=== PATIENT | male | born 1935 | race Caucasian/White ===

== ENCOUNTER → 2016-09-21 | Outpatient (CLI) | payer MEDICARE | END | disposition home or self-care (01) | LOC: CVU 11:40 | PROVIDERS: ATTEND Internal Medicine Cardiovascular Disease | DX: I08.3 Combined rheumatic disorders of mitral, aortic and tricuspid valves (principal); I25.10 Atherosclerotic heart disease of native coronary artery without angina pectoris; I10 Essential (primary) hypertension; I25.2 Old myocardial infarction; Z95.0 Presence of cardiac pacemaker; Z95.5 Presence of coronary angioplasty implant and graft | CPT/HCPCS: 93306 ==

== ENCOUNTER → 2017-08-22 | Outpatient (CLI) | payer MEDICARE | END | disposition home or self-care (01) | LOC: CVU 10:04 | PROVIDERS: ATTEND Internal Medicine Cardiovascular Disease | DX: I08.3 Combined rheumatic disorders of mitral, aortic and tricuspid valves (principal); I25.10 Atherosclerotic heart disease of native coronary artery without angina pectoris; I10 Essential (primary) hypertension; I25.2 Old myocardial infarction; Z87.891 Personal history of nicotine dependence | CPT/HCPCS: 0399T; 93306 ==

== ENCOUNTER → 2018-05-01 | Outpatient (CLI) | payer MEDICARE | END | disposition home or self-care (01) | LOC: RAD 15:37 | PROVIDERS: ATTEND Internal Medicine Cardiovascular Disease | DX: R06.00 Dyspnea, unspecified (principal); M47.814 Spondylosis without myelopathy or radiculopathy, thoracic region; Z95.0 Presence of cardiac pacemaker | CPT/HCPCS: 71046 ==

== ENCOUNTER → 2018-06-14 | Outpatient (CLI) | payer MEDICARE ==
[~2018-06-14] MED LIST: OMNIPAQUE 350 MG/ML, 100ML BOTTLE ONE
== END | disposition home or self-care (01) ==
LOC: CFH 11:53
PROVIDERS: ATTEND Internal Medicine Cardiovascular Disease
DX: R91.8 Other nonspecific abnormal finding of lung field (principal); K80.20 Calculus of gallbladder without cholecystitis without obstruction; K76.89 Other specified diseases of liver; Z95.0 Presence of cardiac pacemaker
CPT/HCPCS: 71260; 82565; Q9967

== ENCOUNTER 2018-07-30 09:58 | Emergency (ER) | payer MEDICARE ==
[~2018-07-30] VITALS: Ht 198.1 cm; Wt 118.0 kg
--- NOTE | 2018-07-30 10:08 | NUR ---
PT BIB [facility] AFTER [facility] THIS MORNING. PT STATES HE WAS DOING YARDWORK AND STEPPED WRONG AND LOST BALANCE. DENIES LOC. LAC TO POSTERIOR HEAD. BLEEDING CONTROLLED EN ROUTE WITH GAUZE AND PRESSURE WRAP. PT CONNECTED TO MONITORS. VSS. AWAITING EDMD ASSESSMENT.
[2018-07-30] MEDS ORDERED: ACETAMINOPHEN 500 MG TABLET ONE (10:24)
[2018-07-30] MEDS ORDERED: LIDOCAINE-MPF 1%, 5ML ONE (10:24)
[2018-07-30] MEDS ORDERED: DIPH,PERTUSS(ACELL),TET VAC/PF 0.5 ML IM-VACC ONE ×2 (10:24→10:30)
[2018-07-30] MEDS ORDERED: LIDOCAINE-MPF 1%, 5ML INFIL ONE (10:30)
[2018-07-30] MEDS ORDERED: ACETAMINOPHEN 500 MG TABLET PO ONE (10:30)
--- NOTE | 2018-07-30 10:35 | NUR ---
PT MEDICATED PER MAR. VSS. NO OTHER NEEDS EXPRESSED. CALL LIGHT WITHIN REACH. PT TO CT.
--- NOTE | 2018-07-30 11:00 | NUR ---
PT BACK FROM CT. VSS. NO NEEDS EXPRESSED. CALL LIGHT WITHIN REACH. AWAITING RESULTS.
[2018-07-30 11:02] VITALS: BP 134/76
--- NOTE | 2018-07-30 12:12 | NUR ---
lac closure complete. axel lucero.
--- NOTE | 2018-07-30 12:51 | NUR ---
Patient given discharge instructions and they have confirmed that they understand the instructions. Patient ambulatory with steady gait. Ride home called- Rufina pearl spoken with & is coming. Pt updated & will wait in lobby.
== END 2018-07-30 12:54 | disposition home or self-care (01) ==
LOC: ED 11:46
DX: S01.01XA Laceration without foreign body of scalp, initial encounter (principal); W18.30XA Fall on same level, unspecified, initial encounter; Y93.89 Activity, other specified; Y92.096 Garden or yard of other non-institutional residence as the place of occurrence of the external cause; Y99.8 Other external cause status
CPT/HCPCS: 12002; 70450; 72125; 90471; 90715

== ENCOUNTER 2019-01-11 07:58 | Day surgery (SDC) | payer MEDICARE ==
[~2019-01-11] VITALS: Ht 198.1 cm; Wt 116.8 kg
[2019-01-11] MEDS ORDERED: SODIUM CHLORIDE 0.9% 1,000 ML IV SCH (08:26)
[2019-01-11 08:38] VITALS: BP 124/69
[2019-01-11] MEDS ORDERED: METO-93 PO (08:44)
[2019-01-11] MEDS ORDERED: EZET10TA70 PO (08:44)
[2019-01-11] MEDS ORDERED: UBID30CA6 PO-COUM (08:44)
[2019-01-11] MEDS ORDERED: GABA300C10 PO ×2 (08:44)
[2019-01-11] MEDS ORDERED: MECL25TA4 PO (08:44)
[2019-01-11] MEDS ORDERED: MULT-658 PO (08:44)
[2019-01-11] MEDS ORDERED: Fish Oil PO (08:44)
[2019-01-11] MEDS ORDERED: VIT1TABL32 PO (08:44)
[2019-01-11] MEDS ORDERED: TAMS-11 PO (08:44)
[2019-01-11] MEDS ORDERED: ASPI-496 PO (08:44)
[2019-01-11] MEDS ORDERED: DIAZ10TA4 PO (08:44)
[2019-01-11 09:23] LABS: BASOPHILS # (AUTO) 0.03 x10^3/uL (0-0.1); BASOPHILS % (AUTO) 1 % (0-1); EOSINOPHILS # (AUTO) 0.12 x10^3/uL (0-0.4); EOSINOPHILS % (AUTO) 3 % (1-7); LYMPHOCYTES # (AUTO) 1.06 x10^3/uL (1-3.4); LYMPHOCYTES % (AUTO) 24 % (22-44); MD NO; MEAN CORPUSCULAR HEMOGLOBIN 29.9 pg (27.5-34.5); MEAN CORPUSCULAR VOLUME 90.4 fL (81-97); MEAN PLATELET VOLUME 7.3 fL (7.4-10.4); MONOCYTES # (AUTO) 0.36 x10^3/uL (0.2-0.8); MONOCYTES % (AUTO) 8 % (2-9); NEUTROPHILS # (AUTO) 2.92 x10^3/uL (1.8-6.8); NEUTROPHILS % (AUTO) 65 % (42-75); PLATELET COUNT 184 x10^3/uL (130-400); RED BLOOD COUNT 4.92 x10^6/uL (4.38-5.82); RED CELL DISTRIBUTION WIDTH 14.8 % (9.4-14.8)
[2019-01-11 09:36] LABS: ANION GAP 5 mmol/L (5-15); CALCIUM 9.1 mg/dL (8.5-10.1); CHLORIDE 111 mmol/L (98-107); CREATININE 1.14 mg/dL (0.7-1.3)
[2019-01-11] MEDS ORDERED: MIDAZOLAM 1 MG/ML, 5ML ONE (09:45)
[2019-01-11] MEDS ORDERED: CEFAZOLIN 1,000 MG ONE (09:45)
[2019-01-11] MEDS ORDERED: CEFAZOLIN PMX 1GM/50ML 50 ML ONE (09:45)
[2019-01-11] MEDS ORDERED: LIDOCAINE 2%, 20ML ONE (09:45)
[2019-01-11] MEDS ORDERED: FENTANYL PF 100 MCG/2ML ONE (09:45)
== END 2019-01-11 13:04 | disposition home or self-care (01) ==
LOC: CACL 07:58
PROVIDERS: ATTEND Internal Medicine Cardiovascular Disease
DX: Z45.010 Encounter for checking and testing of cardiac pacemaker pulse generator [battery] (principal); I10 Essential (primary) hypertension; I49.3 Ventricular premature depolarization; G47.33 Obstructive sleep apnea (adult) (pediatric); Z87.891 Personal history of nicotine dependence; Z79.82 Long term (current) use of aspirin; Z79.899 Other long term (current) drug therapy; Z95.5 Presence of coronary angioplasty implant and graft; Z82.49 Family history of ischemic heart disease and other diseases of the circulatory system
CPT/HCPCS: 33228; 36415; 80048; 85025; 99156; C1785; J0690; J2250; J3010

== ENCOUNTER → 2019-08-27 | Outpatient (CLI) | payer MEDICARE ==
[~2019-08-27] MED LIST changes: +ASPI-496 PO; +DIAZ10TA4 PO; +EZET10TA70 PO; +Fish Oil PO; +GABA300C10 PO; +MECL-101 PO; +METO-93 PO; +MULT-658 PO; -OMNIPAQUE 350 MG/ML, 100ML BOTTLE ONE; +TAMS-11 PO; +UBID30CA6 PO-COUM; +VIT1TABL32 PO
== END | disposition home or self-care (01) ==
LOC: CFH 09:40
PROVIDERS: ATTEND Physician Assistant Medical
DX: R91.8 Other nonspecific abnormal finding of lung field (principal); Z95.0 Presence of cardiac pacemaker
CPT/HCPCS: 71046

== ENCOUNTER 2020-03-06 17:06 | Inpatient (IN) | payer MEDICARE ==
[~2020-03-06] VITALS: Ht 195.6 cm; Wt 94.3 kg
[~2020-03-06 17:06] MED LIST changes: +UBID30CA15 PO-COUM; -UBID30CA6 PO-COUM
--- NOTE | 2020-03-06 17:10 | NUR ---
PT BIBA FOR C/O SUDDEN ONSET LEFT SHOULDER PAIN AND DECREASED ROM TO LEFT UE ONSET TODAY. REPORT TAKEN FROM EMS. PT DENIES INJURY TRAUMA. PT ALSO NOTES SEVERAL MONTHS WORTH OF "DARK" DIARRHEA, WITH RECENT GI WORKUP FOR SAME. PT HAD COLONOSCOPY DONE ONE WEEK AGO WHICH WAS REPORTEDLY NEGATIVE. PT'S GI MD RECOMMENDS CT SCAN. (PER MD CALL TODAY TO PT). IN ADDITION PT NOTES LEFT UPPER ABD PAIN X 1 WEEK, 30-50 LB WEIGHT LOSS OVER LAST 6 WEEKS. ALL MONITORS IN PLACE. EKG TAKEN ON ARRIVAL. CALL LIGHT IN REACH. AWAITING MD AND ORDERS.
[2020-03-06] MEDS ORDERED: SODIUM CHLORIDE 0.9% 1,000 ML IV ONE (17:30)
[2020-03-06] MEDS ORDERED: SODIUM CHLORIDE FLUSH 10ML SYR IVF ONE (17:30)
[2020-03-06] MEDS ORDERED: PLEASE ENTER HEIGHT AND WEIGHT MC SCH (17:30)
--- NOTE | 2020-03-06 17:56 | NUR ---
LAB AT BEDSIDE FOR DRAW. PT A&O, RESPS EVEN AND UNLABORED. 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 NS INFUSING. PT INSTRUCTED TO PROVIDE CLEAN CATCH UA WHEN ABLE, SUPPLIES AT BEDSIDE, CALL LIGHT IN REACH. PT VERBALIZES UNDERSTANDING.
[2020-03-06 18:04] LABS: BASOPHILS % (AUTO) 2 % (0-1); EOSINOPHILS % (AUTO) 2 % (1-7); LYMPHOCYTES % (AUTO) 18 % (22-44); MEAN CORPUSCULAR HEMOGLOBIN 28.7 pg (27.5-34.5); MEAN PLATELET VOLUME 7.7 fL (7.4-10.4); MONOCYTES % (AUTO) 11 % (2-9); NEUTROPHILS % (AUTO) 68 % (42-75); PLATELET COUNT 145 x10^3/uL (130-400); RED BLOOD COUNT 4.34 x10^6/uL (4.38-5.82); RED CELL DISTRIBUTION WIDTH 14.8 % (9.4-14.8)
[2020-03-06 18:05] LABS: MD NO
[2020-03-06 18:16] LABS: ALANINE AMINOTRANSFERASE 36 U/L (12-78); ALBUMIN 3.8 g/dL (3.4-5.0); ANION GAP 5 mmol/L (5-15); CALCIUM 9.5 mg/dL (8.5-10.1); CHLORIDE 110 mmol/L (98-107); CREATININE 1.19 mg/dL (0.7-1.3)
[2020-03-06 18:18] LABS: ALKALINE PHOSPHATASE 98 U/L (45-117); TOTAL PROTEIN 6.7 g/dL (6.4-8.2)
--- NOTE | 2020-03-06 18:33 | NUR ---
MD notified that pt has increased left shoulder pain. pt a&o, resps even and unlabored. pt has not produced urine or bm yet, aware of need to provide for lab studies.
--- NOTE | 2020-03-06 18:57 | NUR ---
REPORT GIVEN TO ARTURO GEORGE, PT IN CT AT THIS TIME.
--- NOTE | 2020-03-06 18:58 | NUR ---
I assumed care of this patient at this time. bedside report received from Rayo MORRIS
--- NOTE | 2020-03-06 19:56 | NUR ---
Pt c/o left shoulder pain requesting pain medicatons.
[2020-03-06] MEDS ORDERED: OMNIPAQUE 350 MG/ML, 100ML BOTTLE ONE (20:00)
--- NOTE | 2020-03-06 20:00 | NUR ---
patient has wide complex SR.has PPM. no pacer spikes noted. denies CP. c/o L shoulder/shoulder blade pain. updated nephew, Juan Carlos qureshi. with patient's verbal consent. patient resting in bed with bed in lowest position. belkis aldrich on per pt request. in NAD. on RA. requesting pain medications for L shoulder pain. Patient states he came here with his home medication bottles with [facility] but these are not in room. May have been left at home. Nephew going to patient's home to check on animal. call canela in reach
[2020-03-06] MEDS ORDERED: HYDROmorphone 2 MG/ML, 1ML IVPush PRN (20:30)
[2020-03-06] MEDS ORDERED: ONDANSETRON 2MG/ML, 2ML IVPush ONE (20:30)
[2020-03-06] MEDS ORDERED: ONDANSETRON 2MG/ML, 2ML ONE (20:50)
[2020-03-06] MEDS ORDERED: HYDROmorphone 1 MG/ML, 1ML INJ ONE (20:50)
--- NOTE | 2020-03-06 21:36 | NUR ---
updated nephew, tan qureshi, at this time with potential plan for admission vs dc. will continue to follow up as needed
[2020-03-06] MEDS ORDERED: SODIUM CHLORIDE FLUSH 10ML SYR IVF PRN (22:00)
--- NOTE | 2020-03-06 22:18 | NUR ---
report given to Kailyn MORRIS on Onc. unit. all personal belongings transferred with patient. random bladder scan prior to transfer
[2020-03-06] MEDS ORDERED: MECLIZINE 25 MG TABLET PO PRN (22:30)
--- NOTE | 2020-03-06 22:53 | NUR ---
bladder scan = >600. admission provider made aware and straight cath'd for 525mL per order. sent UA
[2020-03-06 23:27] VITALS: BP 111/72
[2020-03-06] MEDS ORDERED: DIAZEPAM 5 MG TABLET ONE (23:41)
[2020-03-06] MEDS: DIAZEPAM 10 MG TABLET PO PRN (23:49)
[2020-03-06 23:53] LABS: MICROSCOPIC AUTO
[2020-03-06] MEDS: OXYcodone IR 5MG TABLET PO PRN (23:59)
[2020-03-07] MEDS ORDERED: LACTATED RINGERS 1,000 ML IV SCH
[2020-03-07] MEDS ORDERED: ONDANSETRON 2MG/ML, 2ML IVPush PRN
[2020-03-07] MEDS ORDERED: LABETALOL 5MG/ML, 20ML IVPush PRN
[2020-03-07] MEDS ORDERED: LIDODERM 5% PATCH TD PRN
[2020-03-07] MEDS ORDERED: MELATONIN 5 MG TABLET PO PRN
[2020-03-07] MEDS ORDERED: GABAPENTIN 100 MG CAPSULE PO ONE
[2020-03-07] MEDS ORDERED: DOCUSATE 100 MG CAPSULE PO PRN
[2020-03-07 03:56] VITALS: BP 115/69
[2020-03-07] MEDS: OXYcodone IR 5MG TABLET PO PRN ×5 (03:56→23:15)
[2020-03-07 06:53] LABS: ANION GAP 8 mmol/L (5-15); CALCIUM 8.5 mg/dL (8.5-10.1); CHLORIDE 114 mmol/L (98-107)
[2020-03-07 07:31] VITALS: BP 111/68
[2020-03-07 07:42] LABS: BASOPHILS % (AUTO) 1 % (0-1); EOSINOPHILS % (AUTO) 2 % (1-7); LYMPHOCYTES % (AUTO) 21 % (22-44); MEAN CORPUSCULAR HEMOGLOBIN 28.7 pg (27.5-34.5); MEAN PLATELET VOLUME 8.1 fL (7.4-10.4); MONOCYTES % (AUTO) 12 % (2-9); NEUTROPHILS % (AUTO) 63 % (42-75); PLATELET COUNT 152 x10^3/uL (130-400); RED BLOOD COUNT 4.83 x10^6/uL (4.38-5.82); RED CELL DISTRIBUTION WIDTH 14.8 % (9.4-14.8)
[2020-03-07 07:47] LABS: MD NO
[2020-03-07] MEDS: OMEGA-3/FISH OIL CAPSULE PO SCH (08:50)
[2020-03-07] MEDS: EZETIMIBE 10 MG TABLET PO SCH (08:51)
[2020-03-07] MEDS: ASPIRIN 81 MG TABLET EC PO SCH (08:51)
[2020-03-07] MEDS: GABAPENTIN 400 MG CAPSULE PO SCH (08:51)
[2020-03-07] MEDS: MULTIVITAMIN 1 TABLET PO SCH (08:51)
[2020-03-07] MEDS: METOPROLOL SUCCINATE 50 MG TAB.ER.24H PO SCH (08:51)
[2020-03-07] MEDS: TAMSULOSIN 0.4 MG CAP.ER.24H PO SCH (08:51)
[2020-03-07] MEDS ORDERED: MULTIVITAMIN 1 TABLET PO SCH (09:00)
[2020-03-07] MEDS ORDERED: UBIDECARENONE 30 MG PO-COUM SCH (09:00)
[2020-03-07] MEDS ORDERED: OMNIPAQUE 350 MG/ML, 100ML BOTTLE ONE (10:08)
[2020-03-07 13:14] VITALS: BP 96/55
[2020-03-07] MEDS ORDERED: LOPERAMIDE 2 MG CAPSULE PO PRN (14:30)
[2020-03-07 19:36] VITALS: BP 121/66
[2020-03-07] MEDS: GABAPENTIN 100 MG CAPSULE PO SCH (20:07)
[2020-03-08 02:46] VITALS: BP 111/62
[2020-03-08 05:46] LABS: BASOPHILS % (AUTO) 1 % (0-1); EOSINOPHILS % (AUTO) 2 % (1-7); LYMPHOCYTES % (AUTO) 16 % (22-44); MEAN CORPUSCULAR HEMOGLOBIN 28.6 pg (27.5-34.5); MEAN CORPUSCULAR HGB CONC 33.2 g/dL (33.2-36.2); MONOCYTES % (AUTO) 11 % (2-9); NEUTROPHILS % (AUTO) 70 % (42-75); PLATELET COUNT 162 x10^3/uL (130-400); RED BLOOD COUNT 4.84 x10^6/uL (4.38-5.82); RED CELL DISTRIBUTION WIDTH 14.9 % (9.4-14.8)
[2020-03-08 05:52] LABS: ALBUMIN 3.1 g/dL (3.4-5.0); ANION GAP 8 mmol/L (5-15); CALCIUM 8.7 mg/dL (8.5-10.1); CHLORIDE 108 mmol/L (98-107)
[2020-03-08 06:00] LABS: ALANINE AMINOTRANSFERASE 25 U/L (12-78); ALKALINE PHOSPHATASE 86 U/L (45-117); BILIRUBIN,TOTAL 1.3 mg/dL (0.2-1.0); MD NO; TOTAL PROTEIN 5.9 g/dL (6.4-8.2)
[2020-03-08 08:04] VITALS: BP 122/74
[2020-03-08] MEDS: GABAPENTIN 400 MG CAPSULE PO SCH (09:00)
[2020-03-08] MEDS: EZETIMIBE 10 MG TABLET PO SCH (09:00)
[2020-03-08] MEDS: TAMSULOSIN 0.4 MG CAP.ER.24H PO SCH (09:00)
[2020-03-08] MEDS: MULTIVITAMIN 1 TABLET PO SCH (09:00)
[2020-03-08] MEDS: ASPIRIN 81 MG TABLET EC PO SCH (09:00)
[2020-03-08] MEDS: OMEGA-3/FISH OIL CAPSULE PO SCH (09:00)
[2020-03-08] MEDS: METOPROLOL SUCCINATE 50 MG TAB.ER.24H PO SCH (09:01)
[2020-03-08] MEDS: OXYcodone IR 5MG TABLET PO PRN ×2 (09:03→13:26)
[2020-03-08] MEDS ORDERED: POTASSIUM CHLORIDE 40 MEQ in SODIUM CHLORIDE 0.9% 500 ML IV ONE (10:30)
[2020-03-08 14:54] VITALS: BP 110/70
[2020-03-08 19:19] VITALS: BP 101/61
[2020-03-08] MEDS: GABAPENTIN 100 MG CAPSULE PO SCH (21:11)
[2020-03-09 02:11] VITALS: BP 99/55
[2020-03-09 04:49] LABS: INTERNATIONAL NORMALIZED RATIO 1.12 (0.93-1.1); PROTHROMBIN TIME 11.9 Seconds (9.6-11.5)
[2020-03-09 04:51] LABS: ANION GAP 8 mmol/L (5-15); CALCIUM 8.5 mg/dL (8.5-10.1); CHLORIDE 110 mmol/L (98-107); CREATININE 0.85 mg/dL (0.7-1.3)
[2020-03-09 07:08] VITALS: BP 108/68
[2020-03-09] MEDS: TAMSULOSIN 0.4 MG CAP.ER.24H PO SCH (08:47)
[2020-03-09] MEDS: EZETIMIBE 10 MG TABLET PO SCH (08:47)
[2020-03-09] MEDS: METOPROLOL SUCCINATE 50 MG TAB.ER.24H PO SCH (08:47)
[2020-03-09] MEDS: MULTIVITAMIN 1 TABLET PO SCH (08:47)
[2020-03-09] MEDS: GABAPENTIN 400 MG CAPSULE PO SCH (08:48)
[2020-03-09] MEDS: ASPIRIN 81 MG TABLET EC PO SCH (08:52)
[2020-03-09] MEDS: OMEGA-3/FISH OIL CAPSULE PO SCH (08:53)
[2020-03-09] MEDS ORDERED: POTASSIUM CHLORIDE 20 MEQ TAB.ER.PRT ONE (10:13)
[2020-03-09] MEDS ORDERED: POTASSIUM CHLORIDE 20 MEQ TAB.ER.PRT PO ONE ×2 (10:30→14:30)
[2020-03-09] MEDS ORDERED: MIDAZOLAM 1 MG/ML, 5ML ONE ×2 (10:46)
[2020-03-09] MEDS ORDERED: NALOXONE 1 MG/ML, 2ML ONE (10:46)
[2020-03-09] MEDS ORDERED: FLUMAZENIL 0.1 MG/1 ML, 5ML ONE (10:46)
[2020-03-09] MEDS ORDERED: FENTANYL PF 100 MCG/2ML ONE (10:46)
[2020-03-09 12:03] VITALS: BP 108/65
[2020-03-09 19:44] VITALS: BP 115/72
[2020-03-09] MEDS: POLYETHYLENE GLYCOL 17 GM PACKET PO SCH (19:56)
[2020-03-09] MEDS: PANTOPRAZOLE 40MG TABLET PO SCH (19:57)
[2020-03-09] MEDS: GABAPENTIN 100 MG CAPSULE PO SCH (19:57)
[2020-03-09] MEDS: DOCUSATE 100 MG CAPSULE PO SCH (19:57)
[2020-03-09] MEDS: OXYcodone IR 5MG TABLET PO PRN (20:05)
[2020-03-10 01:04] VITALS: BP 118/76
[2020-03-10] MEDS: OXYcodone IR 5MG TABLET PO PRN (03:39)
[2020-03-10 04:55] LABS: BASOPHILS % (AUTO) 1 % (0-1); EOSINOPHILS % (AUTO) 1 % (1-7); LYMPHOCYTES % (AUTO) 12 % (22-44); MEAN CORPUSCULAR HGB CONC 33.7 g/dL (33.2-36.2); MEAN PLATELET VOLUME 7.9 fL (7.4-10.4); MONOCYTES % (AUTO) 11 % (2-9); NEUTROPHILS % (AUTO) 76 % (42-75); PLATELET COUNT 183 x10^3/uL (130-400); RED BLOOD COUNT 4.48 x10^6/uL (4.38-5.82); RED CELL DISTRIBUTION WIDTH 14.8 % (9.4-14.8)
[2020-03-10 04:56] LABS: MD NO
[2020-03-10 05:04] LABS: ANION GAP 7 mmol/L (5-15); CALCIUM 8.6 mg/dL (8.5-10.1); CHLORIDE 109 mmol/L (98-107); CREATININE 0.79 mg/dL (0.7-1.3)
[2020-03-10] MEDS: PANTOPRAZOLE 40MG TABLET PO SCH ×2 (06:00→16:44)
[2020-03-10] MEDS ORDERED: PANTOPRAZOLE 40MG TABLET PO SCH (06:00)
[2020-03-10 06:45] VITALS: BP 98/54
[2020-03-10 06:51] VITALS: BP 98/58
[2020-03-10] MEDS: TAMSULOSIN 0.4 MG CAP.ER.24H PO SCH (09:47)
[2020-03-10] MEDS: OMEGA-3/FISH OIL CAPSULE PO SCH (09:47)
[2020-03-10] MEDS: MULTIVITAMIN 1 TABLET PO SCH (09:47)
[2020-03-10] MEDS: EZETIMIBE 10 MG TABLET PO SCH (09:47)
[2020-03-10] MEDS: GABAPENTIN 400 MG CAPSULE PO SCH (09:47)
[2020-03-10] MEDS: POLYETHYLENE GLYCOL 17 GM PACKET PO SCH ×2 (09:48→20:52)
[2020-03-10] MEDS: ASPIRIN 81 MG TABLET EC PO SCH (09:48)
[2020-03-10] MEDS: DOCUSATE 100 MG CAPSULE PO SCH ×2 (09:48→20:52)
[2020-03-10] MEDS: METOPROLOL SUCCINATE 50 MG TAB.ER.24H PO SCH (09:48)
[2020-03-10 12:54] VITALS: BP 107/67
[2020-03-10 19:06] VITALS: BP 113/67
[2020-03-10] MEDS: GABAPENTIN 100 MG CAPSULE PO SCH (20:52)
[2020-03-10] MEDS ORDERED: DIAZEPAM 5 MG TABLET ONE (21:17)
[2020-03-10] MEDS: DIAZEPAM 10 MG TABLET PO PRN (21:19)
[2020-03-11 01:58] VITALS: BP 115/71
[2020-03-11] MEDS: PANTOPRAZOLE 40MG TABLET PO SCH ×2 (06:39→16:29)
[2020-03-11 07:24] VITALS: BP 124/67
[2020-03-11] MEDS: MULTIVITAMIN 1 TABLET PO SCH (08:44)
[2020-03-11] MEDS: EZETIMIBE 10 MG TABLET PO SCH (08:44)
[2020-03-11] MEDS: GABAPENTIN 400 MG CAPSULE PO SCH (08:44)
[2020-03-11] MEDS: TAMSULOSIN 0.4 MG CAP.ER.24H PO SCH (08:44)
[2020-03-11] MEDS: POLYETHYLENE GLYCOL 17 GM PACKET PO SCH ×2 (08:44→19:45)
[2020-03-11] MEDS: ASPIRIN 81 MG TABLET EC PO SCH (08:44)
[2020-03-11] MEDS: OMEGA-3/FISH OIL CAPSULE PO SCH (08:45)
[2020-03-11] MEDS: METOPROLOL SUCCINATE 50 MG TAB.ER.24H PO SCH (08:45)
[2020-03-11] MEDS: DOCUSATE 100 MG CAPSULE PO SCH ×2 (08:45→19:45)
[2020-03-11] MEDS: SUCRALFATE 1 GM/10 ML UDC PO SCH ×3 (11:37→19:45)
[2020-03-11 14:15] VITALS: BP 101/67
[2020-03-11] MEDS ORDERED: DIAZEPAM 5 MG TABLET PO PRN (17:00)
[2020-03-11 18:35] VITALS: BP 110/63
[2020-03-11] MEDS: POTASSIUM CHLORIDE 10 MEQ in D5%-LACTATED RINGERS 1,000 ML IV SCH (18:36)
[2020-03-11] MEDS ORDERED: GABAPENTIN 100 MG CAPSULE PO ONE (21:30)
[2020-03-11] MEDS: OXYcodone IR 5MG TABLET PO PRN (22:46)
[2020-03-12 02:00] VITALS: BP 112/66
[2020-03-12] MEDS: SUCRALFATE 1 GM/10 ML UDC PO SCH ×4 (05:52→20:37)
[2020-03-12] MEDS: PANTOPRAZOLE 40MG TABLET PO SCH ×2 (05:52→17:07)
[2020-03-12 05:53] LABS: BASOPHILS % (AUTO) 2 % (0-1); EOSINOPHILS % (AUTO) 5 % (1-7); LYMPHOCYTES % (AUTO) 20 % (22-44); MEAN CORPUSCULAR HEMOGLOBIN 28.6 pg (27.5-34.5); MEAN CORPUSCULAR HGB CONC 33.5 g/dL (33.2-36.2); MEAN PLATELET VOLUME 7.6 fL (7.4-10.4); MONOCYTES % (AUTO) 14 % (2-9); NEUTROPHILS % (AUTO) 60 % (42-75); PLATELET COUNT 227 x10^3/uL (130-400); RED BLOOD COUNT 4.67 x10^6/uL (4.38-5.82); RED CELL DISTRIBUTION WIDTH 14.9 % (9.4-14.8)
[2020-03-12 05:58] LABS: MD NO
[2020-03-12 06:08] LABS: ANION GAP 7 mmol/L (5-15); CALCIUM 8.7 mg/dL (8.5-10.1); CHLORIDE 107 mmol/L (98-107)
[2020-03-12 06:09] LABS: CREATININE 0.88 mg/dL (0.7-1.3)
[2020-03-12 08:11] VITALS: BP 112/75
[2020-03-12] MEDS: ASPIRIN 81 MG TABLET EC PO SCH (08:43)
[2020-03-12] MEDS: MULTIVITAMIN 1 TABLET PO SCH (08:43)
[2020-03-12] MEDS: POTASSIUM CHLORIDE 10 MEQ in D5%-LACTATED RINGERS 1,000 ML IV SCH ×2 (08:43→20:41)
[2020-03-12] MEDS: EZETIMIBE 10 MG TABLET PO SCH (08:43)
[2020-03-12] MEDS: OMEGA-3/FISH OIL CAPSULE PO SCH (08:43)
[2020-03-12] MEDS: TAMSULOSIN 0.4 MG CAP.ER.24H PO SCH (08:44)
[2020-03-12] MEDS: GABAPENTIN 100 MG CAPSULE PO SCH ×3 (08:45→20:38)
[2020-03-12] MEDS: POLYETHYLENE GLYCOL 17 GM PACKET PO SCH ×2 (08:45→19:55)
[2020-03-12] MEDS: METOPROLOL SUCCINATE 50 MG TAB.ER.24H PO SCH (08:45)
[2020-03-12] MEDS: DOCUSATE 100 MG CAPSULE PO SCH ×2 (08:45→19:55)
[2020-03-12 13:11] VITALS: BP 103/60
[2020-03-12 18:39] VITALS: BP 111/57
[2020-03-12] MEDS: OXYcodone IR 5MG TABLET PO PRN (19:49)
[2020-03-13 00:11] VITALS: BP 113/65
[2020-03-13] MEDS: METOPROLOL SUCCINATE 50 MG TAB.ER.24H PO SCH (03:56)
[2020-03-13] MEDS: OXYcodone IR 5MG TABLET PO PRN ×2 (03:57→20:07)
[2020-03-13] MEDS: ASPIRIN 81 MG TABLET EC PO SCH (04:16)
[2020-03-13] MEDS: OMEGA-3/FISH OIL CAPSULE PO SCH (04:17)
[2020-03-13] MEDS: PANTOPRAZOLE 40MG TABLET PO SCH ×2 (05:24→16:34)
[2020-03-13] MEDS: SUCRALFATE 1 GM/10 ML UDC PO SCH ×4 (05:24→20:55)
[2020-03-13 06:39] LABS: D-DIMER 1.83 ug/mlFEU (0.00-0.52); INTERNATIONAL NORMALIZED RATIO 1.06 (0.93-1.1); PROTHROMBIN TIME 11.2 Seconds (9.6-11.5)
[2020-03-13 06:41] LABS: ALANINE AMINOTRANSFERASE 28 U/L (12-78); ALBUMIN 2.6 g/dL (3.4-5.0); ANION GAP 3 mmol/L (5-15); CALCIUM 8.6 mg/dL (8.5-10.1); CHLORIDE 107 mmol/L (98-107)
[2020-03-13 06:43] LABS: ALKALINE PHOSPHATASE 93 U/L (45-117); BILIRUBIN,TOTAL 1.1 mg/dL (0.2-1.0); TOTAL PROTEIN 5.7 g/dL (6.4-8.2)
[2020-03-13 07:13] VITALS: BP 116/68
[2020-03-13] MEDS: POLYETHYLENE GLYCOL 17 GM PACKET PO SCH ×2 (09:00→20:07)
[2020-03-13] MEDS: EZETIMIBE 10 MG TABLET PO SCH (09:05)
[2020-03-13] MEDS: MULTIVITAMIN 1 TABLET PO SCH (09:05)
[2020-03-13] MEDS: DOCUSATE 100 MG CAPSULE PO SCH ×2 (09:05→20:07)
[2020-03-13] MEDS: TAMSULOSIN 0.4 MG CAP.ER.24H PO SCH (09:05)
[2020-03-13] MEDS: GABAPENTIN 100 MG CAPSULE PO SCH ×3 (09:05→20:07)
[2020-03-13] MEDS ORDERED: FENTANYL PF 100 MCG/2ML ONE ×2 (09:49)
[2020-03-13] MEDS ORDERED: MIDAZOLAM 1 MG/ML, 5ML ONE (09:49)
[2020-03-13] MEDS ORDERED: FLUMAZENIL 0.1 MG/1 ML, 5ML ONE (09:49)
[2020-03-13] MEDS ORDERED: NALOXONE 1 MG/ML, 2ML ONE (09:49)
[2020-03-13 10:45] VITALS: BP 102/70
[2020-03-13 13:14] VITALS: BP 99/63
--- NOTE | 2020-03-13 16:34 | NUR ---
Green sheet placed in room. Nursing to work with pt on sitting up and standing avoiding touching L UE due to pain. Once standing pt can walk in halls. Addendum: 03/13/20 at 1635 by Moni Tarango PT Amended: Links added.
[2020-03-13 18:33] VITALS: BP 118/65
[2020-03-14 00:31] VITALS: BP 122/70
[2020-03-14] MEDS: OXYcodone IR 5MG TABLET PO PRN ×2 (04:35→20:46)
[2020-03-14] MEDS: PANTOPRAZOLE 40MG TABLET PO SCH ×2 (05:57→16:06)
[2020-03-14] MEDS: SUCRALFATE 1 GM/10 ML UDC PO SCH ×4 (05:57→20:46)
[2020-03-14 08:03] VITALS: BP 108/68
[2020-03-14] MEDS: POLYETHYLENE GLYCOL 17 GM PACKET PO SCH ×2 (09:46→20:46)
[2020-03-14] MEDS: ASPIRIN 81 MG TABLET EC PO SCH (09:47)
[2020-03-14] MEDS: MULTIVITAMIN 1 TABLET PO SCH (09:47)
[2020-03-14] MEDS: OMEGA-3/FISH OIL CAPSULE PO SCH (09:48)
[2020-03-14] MEDS: METOPROLOL SUCCINATE 50 MG TAB.ER.24H PO SCH (09:48)
[2020-03-14] MEDS: GABAPENTIN 100 MG CAPSULE PO SCH ×3 (09:48→20:46)
[2020-03-14] MEDS: DOCUSATE 100 MG CAPSULE PO SCH ×2 (09:48→20:46)
[2020-03-14] MEDS: EZETIMIBE 10 MG TABLET PO SCH (09:48)
[2020-03-14] MEDS: TAMSULOSIN 0.4 MG CAP.ER.24H PO SCH (09:48)
[2020-03-14] MEDS: ENOXAPARIN 40 MG/0.4 ML SQ SCH (09:51)
[2020-03-14 14:07] VITALS: BP 107/67
[2020-03-14 18:34] VITALS: BP 115/66
[2020-03-15] MEDS: OXYcodone IR 5MG TABLET PO PRN ×4 (00:23→21:21)
[2020-03-15 00:42] VITALS: BP 118/69
[2020-03-15] MEDS: SUCRALFATE 1 GM/10 ML UDC PO SCH ×4 (05:40→21:02)
[2020-03-15] MEDS: PANTOPRAZOLE 40MG TABLET PO SCH ×2 (05:40→16:25)
[2020-03-15 07:00] VITALS: BP 105/61
[2020-03-15] MEDS: TAMSULOSIN 0.4 MG CAP.ER.24H PO SCH (08:58)
[2020-03-15] MEDS: ASPIRIN 81 MG TABLET EC PO SCH (08:58)
[2020-03-15] MEDS: GABAPENTIN 100 MG CAPSULE PO SCH ×3 (08:58→21:03)
[2020-03-15] MEDS: OMEGA-3/FISH OIL CAPSULE PO SCH (08:58)
[2020-03-15] MEDS: MULTIVITAMIN 1 TABLET PO SCH (08:59)
[2020-03-15] MEDS: METOPROLOL SUCCINATE 50 MG TAB.ER.24H PO SCH (08:59)
[2020-03-15] MEDS: ENOXAPARIN 40 MG/0.4 ML SQ SCH (08:59)
[2020-03-15] MEDS: EZETIMIBE 10 MG TABLET PO SCH (08:59)
[2020-03-15] MEDS: DOCUSATE 100 MG CAPSULE PO SCH ×2 (08:59→21:03)
[2020-03-15] MEDS: POLYETHYLENE GLYCOL 17 GM PACKET PO SCH ×3 (09:00→21:01)
[2020-03-15 13:05] VITALS: BP 116/62
[2020-03-15 18:45] VITALS: BP 132/79
[2020-03-16 01:32] VITALS: BP 110/69
[2020-03-16] MEDS: OXYcodone IR 5MG TABLET PO PRN ×2 (02:34→20:24)
[2020-03-16] MEDS: PANTOPRAZOLE 40MG TABLET PO SCH ×2 (05:59→16:55)
[2020-03-16] MEDS: SUCRALFATE 1 GM/10 ML UDC PO SCH ×4 (07:24→20:25)
[2020-03-16] MEDS: ENOXAPARIN 40 MG/0.4 ML SQ SCH (07:24)
[2020-03-16 08:10] VITALS: BP 107/65
[2020-03-16] MEDS: ASPIRIN 81 MG TABLET EC PO SCH (09:02)
[2020-03-16] MEDS: MULTIVITAMIN 1 TABLET PO SCH (09:02)
[2020-03-16] MEDS: GABAPENTIN 100 MG CAPSULE PO SCH ×3 (09:02→20:25)
[2020-03-16] MEDS: TAMSULOSIN 0.4 MG CAP.ER.24H PO SCH (09:02)
[2020-03-16] MEDS: EZETIMIBE 10 MG TABLET PO SCH (09:02)
[2020-03-16] MEDS: DOCUSATE 100 MG CAPSULE PO SCH ×2 (09:03→20:33)
[2020-03-16] MEDS: OMEGA-3/FISH OIL CAPSULE PO SCH (09:03)
[2020-03-16] MEDS: METOPROLOL SUCCINATE 50 MG TAB.ER.24H PO SCH (09:03)
[2020-03-16] MEDS: POLYETHYLENE GLYCOL 17 GM PACKET PO SCH ×2 (09:05→20:33)
[2020-03-16 13:47] VITALS: BP 97/59
[2020-03-16 21:34] VITALS: BP 115/68
[2020-03-17 01:23] VITALS: BP 105/59
[2020-03-17] MEDS: OXYcodone IR 5MG TABLET PO PRN ×2 (03:56→20:39)
[2020-03-17] MEDS: PANTOPRAZOLE 40MG TABLET PO SCH ×2 (05:29→16:16)
[2020-03-17 07:59] VITALS: BP 106/63
[2020-03-17] MEDS: POLYETHYLENE GLYCOL 17 GM PACKET PO SCH ×3 (09:00→20:34)
[2020-03-17] MEDS: DOCUSATE 100 MG CAPSULE PO SCH ×3 (09:00→20:34)
[2020-03-17] MEDS: TAMSULOSIN 0.4 MG CAP.ER.24H PO SCH (09:54)
[2020-03-17] MEDS: OMEGA-3/FISH OIL CAPSULE PO SCH (09:54)
[2020-03-17] MEDS: SUCRALFATE 1 GM/10 ML UDC PO SCH ×4 (09:54→20:34)
[2020-03-17] MEDS: EZETIMIBE 10 MG TABLET PO SCH (09:54)
[2020-03-17] MEDS: MULTIVITAMIN 1 TABLET PO SCH (09:54)
[2020-03-17] MEDS: GABAPENTIN 100 MG CAPSULE PO SCH ×3 (09:54→20:35)
[2020-03-17] MEDS: ASPIRIN 81 MG TABLET EC PO SCH (09:54)
[2020-03-17] MEDS: METOPROLOL SUCCINATE 50 MG TAB.ER.24H PO SCH (09:55)
[2020-03-17] MEDS: ENOXAPARIN 40 MG/0.4 ML SQ SCH (09:55)
[2020-03-17 12:54] VITALS: BP 92/53
[2020-03-17 12:58] VITALS: BP 96/61
[2020-03-17 20:18] VITALS: BP 98/60
[2020-03-18 00:20] VITALS: BP 102/63
[2020-03-18] MEDS: LIDODERM REMOVE PATCH NOTE XX SCH (01:00)
[2020-03-18 05:06] LABS: ANION GAP 7 mmol/L (5-15); CALCIUM 8.8 mg/dL (8.5-10.1); CHLORIDE 108 mmol/L (98-107); CREATININE 0.92 mg/dL (0.7-1.3)
[2020-03-18 06:08] VITALS: BP 93/57
[2020-03-18] MEDS: SUCRALFATE 1 GM/10 ML UDC PO SCH ×4 (07:32→21:42)
[2020-03-18] MEDS: PANTOPRAZOLE 40MG TABLET PO SCH ×2 (07:32→16:20)
[2020-03-18] MEDS: POLYETHYLENE GLYCOL 17 GM PACKET PO SCH ×2 (09:00→21:00)
[2020-03-18] MEDS: METOPROLOL SUCCINATE 50 MG TAB.ER.24H PO SCH ×2 (09:00→09:04)
[2020-03-18] MEDS: MULTIVITAMIN 1 TABLET PO SCH (09:04)
[2020-03-18] MEDS: ASPIRIN 81 MG TABLET EC PO SCH (09:04)
[2020-03-18] MEDS: GABAPENTIN 100 MG CAPSULE PO SCH ×3 (09:04→21:43)
[2020-03-18] MEDS: EZETIMIBE 10 MG TABLET PO SCH (09:04)
[2020-03-18] MEDS: ENOXAPARIN 40 MG/0.4 ML SQ SCH (09:05)
[2020-03-18] MEDS: TAMSULOSIN 0.4 MG CAP.ER.24H PO SCH (09:05)
[2020-03-18] MEDS: OMEGA-3/FISH OIL CAPSULE PO SCH (09:05)
[2020-03-18] MEDS: DOCUSATE 100 MG CAPSULE PO SCH ×2 (09:15→21:43)
[2020-03-18] MEDS ORDERED: LIDODERM 5% PATCH TD SCH (13:00)
[2020-03-18] MEDS ORDERED: LIDODERM 5% PATCH TD ONE ×2 (13:25→13:31)
[2020-03-18] MEDS: LIDODERM 5% PATCH TD SCH (13:28)
[2020-03-18 14:00] VITALS: BP 128/70
[2020-03-18 18:56] VITALS: BP 122/66
[2020-03-18] MEDS: OXYcodone IR 5MG TABLET PO PRN (21:43)
[2020-03-19] MEDS: LIDODERM REMOVE PATCH NOTE XX SCH (01:00)
[2020-03-19] MEDS: OXYcodone IR 5MG TABLET PO PRN ×2 (02:59→21:37)
[2020-03-19 03:06] VITALS: BP 110/61
[2020-03-19] MEDS: SUCRALFATE 1 GM/10 ML UDC PO SCH ×4 (05:21→21:36)
[2020-03-19] MEDS: PANTOPRAZOLE 40MG TABLET PO SCH ×2 (05:21→16:26)
[2020-03-19 07:16] VITALS: BP 113/66
[2020-03-19] MEDS ORDERED: LIDOCAINE 1%, 10ML INFIL ONE (08:00)
[2020-03-19] MEDS ORDERED: TRIAMCINOLONE ACETONIDE 40 MG/ML, 1ML IM ONE ×2 (08:00→12:30)
[2020-03-19] MEDS: METOPROLOL SUCCINATE 50 MG TAB.ER.24H PO SCH (08:26)
[2020-03-19] MEDS: OMEGA-3/FISH OIL CAPSULE PO SCH (08:27)
[2020-03-19] MEDS: ASPIRIN 81 MG TABLET EC PO SCH (08:27)
[2020-03-19] MEDS: EZETIMIBE 10 MG TABLET PO SCH (08:27)
[2020-03-19] MEDS: MULTIVITAMIN 1 TABLET PO SCH (08:27)
[2020-03-19] MEDS: TAMSULOSIN 0.4 MG CAP.ER.24H PO SCH (08:27)
[2020-03-19] MEDS: ENOXAPARIN 40 MG/0.4 ML SQ SCH (08:27)
[2020-03-19] MEDS: DOCUSATE 100 MG CAPSULE PO SCH ×2 (08:27→21:36)
[2020-03-19] MEDS: GABAPENTIN 100 MG CAPSULE PO SCH ×3 (08:27→21:36)
[2020-03-19] MEDS: POLYETHYLENE GLYCOL 17 GM PACKET PO SCH ×2 (08:28→21:37)
[2020-03-19 14:19] VITALS: BP 114/57
[2020-03-19 20:10] VITALS: BP 113/57
[2020-03-20] MEDS: LIDODERM REMOVE PATCH NOTE XX SCH (01:42)
[2020-03-20 03:55] VITALS: BP 107/64
[2020-03-20 04:53] VITALS: BP 107/64
[2020-03-20] MEDS: PANTOPRAZOLE 40MG TABLET PO SCH ×2 (05:42→15:43)
[2020-03-20] MEDS: OXYcodone IR 5MG TABLET PO PRN ×2 (06:17→21:32)
[2020-03-20 06:35] VITALS: BP 123/65
[2020-03-20] MEDS: SUCRALFATE 1 GM/10 ML UDC PO SCH ×4 (07:34→21:20)
[2020-03-20 07:35] LABS: BASOPHILS % (AUTO) 1 % (0-1); EOSINOPHILS % (AUTO) 1 % (1-7); LYMPHOCYTES % (AUTO) 13 % (22-44); MEAN CORPUSCULAR HEMOGLOBIN 28.6 pg (27.5-34.5); MEAN CORPUSCULAR HGB CONC 33.3 g/dL (33.2-36.2); MEAN PLATELET VOLUME 6.8 fL (7.4-10.4); MONOCYTES % (AUTO) 9 % (2-9); NEUTROPHILS % (AUTO) 77 % (42-75); PLATELET COUNT 313 x10^3/uL (130-400); RED BLOOD COUNT 4.45 x10^6/uL (4.38-5.82); RED CELL DISTRIBUTION WIDTH 14.7 % (9.4-14.8)
[2020-03-20 07:40] LABS: MD NO
[2020-03-20 07:43] LABS: ANION GAP 6 mmol/L (5-15); CALCIUM 8.7 mg/dL (8.5-10.1); CHLORIDE 108 mmol/L (98-107)
[2020-03-20 07:54] LABS: CREATININE 0.78 mg/dL (0.7-1.3)
[2020-03-20 08:15] LABS: FREE T4 (FREE THYROXINE) 1.16 ng/dL (0.76-1.46)
[2020-03-20] MEDS: ENOXAPARIN 40 MG/0.4 ML SQ SCH (09:02)
[2020-03-20] MEDS: ASPIRIN 81 MG TABLET EC PO SCH (09:02)
[2020-03-20] MEDS: EZETIMIBE 10 MG TABLET PO SCH (09:02)
[2020-03-20] MEDS: TAMSULOSIN 0.4 MG CAP.ER.24H PO SCH (09:02)
[2020-03-20] MEDS: GABAPENTIN 100 MG CAPSULE PO SCH ×3 (09:02→21:20)
[2020-03-20] MEDS: OMEGA-3/FISH OIL CAPSULE PO SCH (09:02)
[2020-03-20] MEDS: METOPROLOL SUCCINATE 50 MG TAB.ER.24H PO SCH (09:02)
[2020-03-20] MEDS: MULTIVITAMIN 1 TABLET PO SCH (09:02)
[2020-03-20] MEDS: DOCUSATE 100 MG CAPSULE PO SCH ×2 (09:02→21:20)
[2020-03-20] MEDS: POLYETHYLENE GLYCOL 17 GM PACKET PO SCH ×2 (09:03→21:21)
[2020-03-20] MEDS: LIDODERM 5% PATCH TD SCH (11:57)
[2020-03-20 14:28] VITALS: BP 101/64
[2020-03-20 19:03] VITALS: BP 116/67
[2020-03-20] MEDS ORDERED: GABAPENTIN 300 MG CAPSULE ONE (21:17)
[2020-03-21 01:48] VITALS: BP 101/61
[2020-03-21] MEDS: LIDODERM REMOVE PATCH NOTE XX SCH (02:01)
[2020-03-21] MEDS: PANTOPRAZOLE 40MG TABLET PO SCH ×2 (06:21→16:57)
[2020-03-21 07:11] VITALS: BP 125/82
[2020-03-21] MEDS: ENOXAPARIN 40 MG/0.4 ML SQ SCH (09:16)
[2020-03-21] MEDS: POLYETHYLENE GLYCOL 17 GM PACKET PO SCH ×2 (09:16→20:44)
[2020-03-21] MEDS: EZETIMIBE 10 MG TABLET PO SCH (09:17)
[2020-03-21] MEDS: SUCRALFATE 1 GM/10 ML UDC PO SCH ×4 (09:17→20:44)
[2020-03-21] MEDS: ASPIRIN 81 MG TABLET EC PO SCH (09:17)
[2020-03-21] MEDS: OMEGA-3/FISH OIL CAPSULE PO SCH (09:17)
[2020-03-21] MEDS: GABAPENTIN 100 MG CAPSULE PO SCH ×3 (09:18→20:44)
[2020-03-21] MEDS: TAMSULOSIN 0.4 MG CAP.ER.24H PO SCH (09:19)
[2020-03-21] MEDS: DOCUSATE 100 MG CAPSULE PO SCH ×2 (09:19→20:44)
[2020-03-21] MEDS: MULTIVITAMIN 1 TABLET PO SCH (09:20)
[2020-03-21] MEDS: METOPROLOL SUCCINATE 50 MG TAB.ER.24H PO SCH (09:20)
[2020-03-21] MEDS: LIDODERM 5% PATCH TD SCH (13:52)
[2020-03-21 14:08] VITALS: BP 102/58
[2020-03-21 18:51] VITALS: BP 112/67
[2020-03-21] MEDS: OXYcodone IR 5MG TABLET PO PRN (20:45)
[2020-03-22 00:23] VITALS: BP 125/69
[2020-03-22] MEDS: LIDODERM REMOVE PATCH NOTE XX SCH (02:30)
[2020-03-22] MEDS: PANTOPRAZOLE 40MG TABLET PO SCH ×2 (06:44→16:45)
[2020-03-22] MEDS: SUCRALFATE 1 GM/10 ML UDC PO SCH ×4 (06:44→20:53)
[2020-03-22] MEDS: DOCUSATE 100 MG CAPSULE PO SCH ×2 (08:44→20:51)
[2020-03-22] MEDS: POLYETHYLENE GLYCOL 17 GM PACKET PO SCH ×2 (08:44→20:52)
[2020-03-22] MEDS: OMEGA-3/FISH OIL CAPSULE PO SCH (08:44)
[2020-03-22] MEDS: TAMSULOSIN 0.4 MG CAP.ER.24H PO SCH (08:44)
[2020-03-22] MEDS: ENOXAPARIN 40 MG/0.4 ML SQ SCH (08:44)
[2020-03-22] MEDS: GABAPENTIN 100 MG CAPSULE PO SCH ×3 (08:44→20:52)
[2020-03-22] MEDS: ASPIRIN 81 MG TABLET EC PO SCH (08:44)
[2020-03-22] MEDS: MULTIVITAMIN 1 TABLET PO SCH (08:45)
[2020-03-22] MEDS: METOPROLOL SUCCINATE 50 MG TAB.ER.24H PO SCH (08:45)
[2020-03-22] MEDS: EZETIMIBE 10 MG TABLET PO SCH (08:45)
[2020-03-22 09:27] VITALS: BP 113/66
[2020-03-22] MEDS: ACETAMINOPHEN 325 MG TABLET PO PRN ×2 (13:53→23:22)
[2020-03-22] MEDS: LIDODERM 5% PATCH TD SCH (13:56)
[2020-03-22 14:50] VITALS: BP 121/73
[2020-03-22] MEDS ORDERED: CALCIUM CARBONATE 500 MG TAB.CHEW PO PRN (18:30)
[2020-03-22 19:41] VITALS: BP 128/77
[2020-03-22] MEDS: OXYcodone IR 5MG TABLET PO PRN (20:52)
[2020-03-22] MEDS ORDERED: LIDO700A20 TD (22:49)
[2020-03-22] MEDS ORDERED: PANT40TA6 PO (22:49)
[2020-03-22] MEDS ORDERED: GABA-826 PO (22:49)
[2020-03-22] MEDS ORDERED: POLY17PO5 PO (22:49)
[2020-03-22] MEDS ORDERED: OXYC5TAB98 PO (22:50)
[2020-03-22] MEDS ORDERED: ONDA4TAB7 PO (22:50)
[2020-03-23] MEDS: OXYcodone IR 5MG TABLET PO PRN (00:32)
[2020-03-23] MEDS: LIDODERM REMOVE PATCH NOTE XX SCH (01:18)
[2020-03-23 03:36] VITALS: BP 112/60
[2020-03-23] MEDS: PANTOPRAZOLE 40MG TABLET PO SCH (05:24)
[2020-03-23 06:25] VITALS: BP 105/65
[2020-03-23] MEDS: POLYETHYLENE GLYCOL 17 GM PACKET PO SCH (07:43)
[2020-03-23] MEDS: DOCUSATE 100 MG CAPSULE PO SCH (07:43)
[2020-03-23] MEDS: SUCRALFATE 1 GM/10 ML UDC PO SCH ×2 (07:49→11:50)
[2020-03-23] MEDS: METOPROLOL SUCCINATE 50 MG TAB.ER.24H PO SCH (07:49)
[2020-03-23] MEDS: TAMSULOSIN 0.4 MG CAP.ER.24H PO SCH (07:49)
[2020-03-23] MEDS: GABAPENTIN 100 MG CAPSULE PO SCH (07:49)
[2020-03-23] MEDS: MULTIVITAMIN 1 TABLET PO SCH (07:49)
[2020-03-23] MEDS: ASPIRIN 81 MG TABLET EC PO SCH (07:50)
[2020-03-23] MEDS: ENOXAPARIN 40 MG/0.4 ML SQ SCH (07:50)
[2020-03-23] MEDS: EZETIMIBE 10 MG TABLET PO SCH (07:50)
[2020-03-23] MEDS: OMEGA-3/FISH OIL CAPSULE PO SCH (07:50)
[2020-03-23] MEDS ORDERED: oxy (09:50)
[2020-03-23] MEDS ORDERED: OXYC10TA6 PO ×3 (09:55→10:03)
[2020-03-23 12:02] VITALS: BP 104/68
== END 2020-03-23 13:17 | disposition hospice, inpatient (51) | DRG 181 ==
LOC: ED 22:52 → EDIP 23:03 → 4NW 23:05 → 4NE 03-17 20:44 → 4NW 03-19 21:54
PROVIDERS: ADMIT Internal Medicine; ATTEND Hospitalist
PROC: 0BBC3ZX Excision of Right Upper Lung Lobe, Percutaneous Approach, Diagnostic (ICD-10-PCS; principal; 2020-03-09)
PROC: 0FB23ZX Excision of Left Lobe Liver, Percutaneous Approach, Diagnostic (ICD-10-PCS; 2020-03-13)
DX: C34.92 Malignant neoplasm of unspecified part of left bronchus or lung (principal); E44.0 Moderate protein-calorie malnutrition; C78.7 Secondary malignant neoplasm of liver and intrahepatic bile duct; A09 Infectious gastroenteritis and colitis, unspecified; C79.51 Secondary malignant neoplasm of bone; N28.1 Cyst of kidney, acquired; Z68.24 Body mass index [BMI] 24.0-24.9, adult; E78.5 Hyperlipidemia, unspecified; I10 Essential (primary) hypertension; K52.839 Microscopic colitis, unspecified; K59.03 Drug induced constipation; M19.90 Unspecified osteoarthritis, unspecified site; M48.02 Spinal stenosis, cervical region; M50.30 Other cervical disc degeneration, unspecified cervical region; N40.1 Benign prostatic hyperplasia with lower urinary tract symptoms; R33.8 Other retention of urine; S43.422A Sprain of left rotator cuff capsule, initial encounter; F41.9 Anxiety disorder, unspecified; R53.81 Other malaise; N28.89 Other specified disorders of kidney and ureter; Z79.899 Other long term (current) drug therapy; Z82.49 Family history of ischemic heart disease and other diseases of the circulatory system; Z90.49 Acquired absence of other specified parts of digestive tract; Z95.0 Presence of cardiac pacemaker; Y93.89 Activity, other specified; Y92.89 Other specified places as the place of occurrence of the external cause; Y99.8 Other external cause status
CPT/HCPCS: 32408; 36415; 47000; 71250; 72125; 74177; 74178; 77012; 80048; 80053; 81001; 82378; 83605; 83690; 83735; 84100; 84153; 84439; 84443; 85025; 85379; 85610; 86301; 87040; 88305; 88307; 88333; 88341; 88342; 89055; 93005; 96361; 96374; 96375; 99156; 99157; 99285; G0378; J1170; J1650; J2250; J2405; J3010; J3301; J3480; Q9967; G0103; J2310; J7030; J7040; J7120; J7121